=== PATIENT | male | born 1990 | race Two or more races ===

== ENCOUNTER 2024-10-11 01:09 | Emergency (ER) | payer OTHER ==
[~2024-10-11] VITALS: Ht 170.2 cm; Wt 86.0 kg
[2024-10-11] MEDS ORDERED: METF-1211 PO (01:19)
[2024-10-11 01:31] VITALS: BP 140/86; PULSE 82; RESP 18; TEMP 98.2; O2SAT 97
== END 2024-10-11 02:26 ==
LOC: EMS 01:29
DX: Z02.89 Encounter for other administrative examinations (principal); E11.9 Type 2 diabetes mellitus without complications; I10 Essential (primary) hypertension
CPT/HCPCS: 82962; 99283